=== PATIENT | male | born 1985 | race Caucasian/White ===

== ENCOUNTER 2016-06-23 15:53 | Emergency (ER) | payer OTHER ==
[~2016-06-23] VITALS: Ht 175.3 cm; Wt 108.9 kg
--- NOTE | 2016-06-23 15:53 | NUR ---
Patient BIBA ACLS, transferred to bed 5. RN evaluating patient at bedside.
[2016-06-23] MEDS ORDERED: ASPIRIN 81 MG TAB.CHEW PO ONE (16:00)
[2016-06-23] MEDS ORDERED: NACL 0.9% 1,000 ML IV ONE (16:00)
[2016-06-23 16:02] VITALS: BP 150/108
--- NOTE | 2016-06-23 17:00 | NUR ---
pt to ct via wheel chair
--- NOTE | 2016-06-23 17:13 | NUR ---
pt returned from ct via wc--
[2016-06-23] MEDS ORDERED: LORazepam 2 MG/ML VIAL IVP ONE (17:50)
[2016-06-23] MEDS ORDERED: KETOROLAC 30 MG/ML VIAL IVP ONE (17:50)
--- NOTE | 2016-06-23 18:10 | NUR ---
c/o persistant king and cp but decreased ----c/o anxiety, wringing of the hands medicated , will continue to observe and monitor for changes
--- NOTE | 2016-06-23 18:34 | NUR ---
encouraged pt to f/u with psych for consult----also to seek anger management / counseling--pt open to converse and express self---
--- NOTE | 2016-06-23 19:02 | NUR ---
Patient discharged with v/s stable. Written and verbal after care instructions given and explained. Patient verbalized understanding. Ambulatory with steady gait. All questions addressed prior to discharge. Advised to follow up with PMD.
[2016-06-23 19:03] VITALS: BP 142/89
== END 2016-06-23 19:02 | disposition home or self-care (01) ==
LOC: MED 15:53
DX: R07.89 Other chest pain (principal); F41.9 Anxiety disorder, unspecified; F32.9 Major depressive disorder, single episode, unspecified; I10 Essential (primary) hypertension; Z88.3 Allergy status to other anti-infective agents
CPT/HCPCS: 36415; 70450; 71010; 80053; 80305; 84484; 85025; 85610; 85730; 93005; 96361; 96374; 96375; 99285; G0480; G0482; J1885; J2060; Q0092